=== PATIENT | male | born 1980 | race African-American/Black ===

== ENCOUNTER 2016-11-11 22:00 | Inpatient (IN) | payer OTHER ==
[~2016-11-11] VITALS: Ht 167.6 cm; Wt 76.2 kg
--- NOTE | ~2016-11-11 | PN ---
Unit #: [id number] #: [id number] Patient: RASHI GIBSON [id number] [facility] [address] [place] [address] [id number] MR#: [id number] NAME: RASHI GIBSON. ROOM: P1 Age: 35 Sex: M Admission Date: 11/12/2016 : 1980 Attending Physician: Jeronimo Pradhan M.D. Admitting Physician: Jeronimo Pradhan M.D. Primary Care Physician: Primary Care Physician Megan BARRON PROGRESS NOTES DATE 11/15/2016 DISCUSSION Rashi Gibson is a 35-year-old male, seen on 11/15/2016. The patient interviewed, chart reviewed, and obtained information from the nursing staff. The patient reports making progress and somewhat anxious and nervous but denied any thoughts of harming self or others. The patient's vital signs, 98.4, 57, 106/54. REVIEW OF SYSTEMS Complete review of systems unremarkable. MENTAL STATUS EXAMINATION General appearance: Attention span and concentration, fair. Oriented in time, place, and person. Mood and affect, labile. Speech, monotone. Thought process, concrete. The patient denied any thoughts of harming self or others. Recent and remote memory, poor. Insight and judgment, poor. DIAGNOSES 1. Mood disorder, NOS. 2. Opiate use disorder, severe. ASSESSMENT/PLAN Advised to continue with the current medication and therapeutic protocol, and if needed consider further adjustment of medication. Dictated by... Deb Galo/jocy TD: 11/16/2016 08:55 JOB #: [id number] Unit #: [id number] #: [id number] Patient: RASHI GIBSON PROGRESS NOTES Page 1 of 1 X Jeronimo Pradhan MD PROGRESS NOTE
--- NOTE | ~2016-11-11 | DS ---
Unit #: [id number] #: [id number] Patient: MADISON MILTON [id number] [facility] [address] [place] [address] [id number] MR#: [id number] NAME: MADISON MILTON. ROOM: [facility] Age: 35 Sex: M Admission Date: 11/12/2016 : 1980 Discharge Date: 11/16/2016 Attending Physician: Jeronimo Pradhan M.D. Primary Care Physician: Primary Care Physician No DISCHARGE SUMMARY REASON FOR ADMISSION Detox. DIAGNOSTIC STUDIES LABORATORY RESULTS: Remarkable for alkaline phosphatase is 124. RBC 6.52. HOSPITAL COURSE The patient was admitted to inpatient unit on 11/12/2016 and discharged on 11/16/2016. The patient was treated on the inpatient unit with chemical dependency group, expressive therapy, psychoeducation, and psychotherapy. The patient was responsive to treatment. Subsequently, the patient was discharged with a plan to follow up in outpatient program. DISCHARGE MEDICATIONS Celexa 20 mg daily for depression. DISCHARGE DIAGNOSES Psychiatric: Major depressive disorder, recurrent, severe, F33.2; opioid use disorder, severe, F11.20; cannabis abuse, moderate, F12.20. Secondary diagnosis: Deferred. Medical diagnosis: None. Stressors: Psychosocial stressors. DISCHARGE INSTRUCTIONS The patient to follow up in outpatient clinic as per social research assistant. CONDITION ON DISCHARGE The patient was pleasant and cooperative. Denied any psychotic symptom or any suicidal ideation. PROGNOSIS Guarded. DIET AND ACTIVITY As tolerated. Dictated by... Jeronimo Pradhan M.D. Unit #: [id number] #: [id number] Patient: MADISON MILTON SZC/modl TD: 11/16/2016 15:20 JOB #: [id number] DISCHARGE SUMMARY Page 1 of 1 X Jeronimo Pradhan MD X DISCHARGE SUMMARY
--- NOTE | ~2016-11-11 | PN ---
Unit #: [id number] #: [id number] Patient: RASHI GIBSON [id number] [facility] [address] [place] [address] [id number] MR#: [id number] NAME: RASHI GIBSON. ROOM: [facility] Age: 35 Sex: M Admission Date: 11/12/2016 : 1980 Attending Physician: Jeronimo Pradhan M.D. Admitting Physician: Jeronimo Pradhan M.D. Primary Care Physician: Primary Care Physician Megan BARRON PROGRESS NOTES DATE 11/13/2016 DISCUSSION Rashi Gibson is a 35-year-old male seen on 11/13/2016. The patient interviewed, chart reviewed. Obtained information from nursing staff. The patient was compliant and cooperative. Mood labile. The patient tolerating medication fairly well. The patient currently on Celexa, no side effects from medication. The patient was able to participate in group. Complete review of systems unremarkable. MENTAL STATUS EXAMINATION General appearance, the patient dressed casually. Attention span and concentration fair. Oriented to time, place and person. Mood and affect labile. Speech monotone. Thought process concrete. The patient denied any thoughts of harming self or others. Recent and remote memory poor. Insight and judgement poor. DIAGNOSES Mood disorder NOS ASSESSMENT/PLAN Advise to continue with current medication and therapeutic protocol. If needed consider further adjustment of medication. Dictated by... Deb Galo/nas TD: 11/15/2016 03:45 JOB #: [id number] Unit #: [id number] #: [id number] Patient: RASHI GIBSON ANDERSON PROGRESS NOTES Page 1 of 1 X Jeronimo Pradhan MD PROGRESS NOTE
--- NOTE | ~2016-11-11 | PN ---
Unit #: [id number] #: [id number] Patient: RASHI GIBSON [id number] [facility] [address] [place] [address] [id number] MR#: [id number] NAME: RASHI GIBSON. ROOM: P1 Age: 35 Sex: M Admission Date: 11/12/2016 : 1980 Attending Physician: Jeronimo Pradhan M.D. Admitting Physician: Jeronimo Pradhan M.D. Primary Care Physician: Primary Care Physician Megan BARRON PROGRESS NOTES DATE 11/14/2016 DISCUSSION Rashi Gibson is a 35-year-old male seen on 11/14/2016. Patient interviewed. Chart reviewed. Obtained information from nursing staff. Patient continues to be isolative, guarded, flat affect. Patient tolerating medication fairly well. Patient denied any complaint but still isolative, guarded. Patient tolerating medication fairly well. Complete review of system unremarkable. MENTAL STATUS EXAMINATION General appearance, patient dressed casually. Attention span, concentration fair. Oriented in place and person. Mood and affect sad, dysphoric, withdrawn, isolative, guarded. Denied any thoughts of harming self or others but withdrawn, isolative. Complete review of system unremarkable. MENTAL STATUS EXAMINATION General appearance, patient dressed casually. Attention span, concentration fair. Oriented in place and person. Mood and affect sad, dysphoric. Speech monotone. Thought process concrete. Patient denied any thoughts of harming self or others but withdrawn, isolative, sad, dysphoric. Insight and judgement fair to poor. DIAGNOSES 1. Major depressive disorder, recurrent, severe. 2. Opiate use disorder, severe. 3. Cannabis abuse, moderate. ASSESSMENT/PLAN Advised to continue with current medication and therapeutic protocol. If needed, consider further adjustment of medication. Dictated by... Deb Galo/paulino TD: 11/15/2016 23:04 JOB #: [id number] Unit #: [id number] #: [id number] Patient: RASHI GIBSON [facility] PROGRESS NOTES Page 1 of 1 X Jeronimo Pradhan MD PROGRESS NOTE
--- NOTE | ~2016-11-11 | PA ---
Unit #: [id number] #: [id number] Patient: MADISON GIBSON [id number] [facility] [address] [place] [address] [id number] MR#: [id number] NAME: MADISON GIBSON. ROOM: [facility] Age: 35 Sex: M Admission Date: 11/12/2016 : 1980 Date of Assessment: Attending Physician: Jeronimo Pradhan M.D. Admitting Physician: Jeronimo Pradhan M.D. Primary Care Physician: Primary Care Physician No PSYCHIATRIC ASSESSMENT INFORMANTS The patient reliability, fair informant and chart reliability, good. CHIEF COMPLAINT Depression and suicidal ideation. HISTORY OF PRESENT ILLNESS Yeny Gibson is a 35-year-old male, who presented with the above-mentioned complaint. The patient reported tried to hang himself tonight twice reported that his aunt came to room and stop him. The patient reported that he cannot do anything right. The patient reports that he has been unable to find a job. The patient reports that he has to listen to his children's mother telling him sorry. The patient reports that he snorts heroin. Also uses cannabis daily. The patient currently unemployed, has eighth grade of education, homeless, overdose in a hotel 2 to 3 weeks ago. The patient is sleeping 3 hours, poor appetite, loss of weight almost 10 pounds, suffered from gout and hypertension. The patient needing inpatient admission at this time for psychiatric stabilization. PAST PSYCHIATRIC HISTORY Remarkable for history of previous treatment in the past, details unknown at this time. FAMILY AND SOCIAL HISTORY The patient has a poor support system. No known history of any psychiatric illness in the family. No known history of any abuse or any developmental delays known at this time. No legal charges. MEDICAL HISTORY Unremarkable for any chronic medical condition. Musculoskeletal; muscle strength and tone, no atrophy or abnormal movement. Gait normal. MEDICATION HISTORY None. ALLERGIES No known drug allergies. SUBSTANCE ABUSE HISTORY Tobacco use, age of onset 14; marijuana, age of onset 13; opioid, age of onset 27. Longest period of sobriety 6 months, last period of sobriety in 2012. The patient reported legal issues, homelessness, muscle cramping, depressed mood, abdominal cramping, and diarrhea. Unit #: [id number] #: [id number] Patient: MADISON GIBSON REVIEW OF SYSTEMS HEENT: Eyes, clear. Ears, nose, mouth, and throat are clear. CARDIOVASCULAR: Unremarkable. RESPIRATORY: Unremarkable. GI: Unremarkable. : Unremarkable. SKIN: Unremarkable. LYMPH NODE: Unremarkable. NEUROLOGIC: Unremarkable. ENDOCRINE: Unremarkable. HEMATOLOGIC: Unremarkable. ALLERGIC/IMMUNOLOGIC: Unremarkable. MUSCULOSKELETAL: Muscle strength and tone, no atrophy or abnormal movement. Gait normal. MENTAL STATUS EXAMINATION CONSTITUTIONAL: Measurement of vital signs; temperature 97.8, pulse 64, respiratory rate 18, and blood pressure 92/56. Height 5 feet 6 inches, weight 168 pounds. GENERAL APPEARANCE: The patient dressed casually. The patient did not show any facial deformity. MUSCULOSKELETAL: Please see above. PSYCHIATRIC EXAMINATION Description of speech; regular rate, normal volume, normal articulation, coherent, and spontaneous. Description of thought process, goal directed. Description of association, intact. Description of abnormal psychotic thinking; the patient denied any hallucination or delusions, but having suicidal ideation. Denied any homicidal ideation. Depressed mood, substance abuse. Description of the patient's judgment, concerning everyday activity, poor. Social situation, poor. Concerning psychiatric condition, poor. Complete mental status examination; oriented in time, place, and person. Recent and remote memory, fair. Attention span and concentration, fair. Language, able to name object and repeat phrases. Fund of knowledge, aware of current event and passive vocabulary intact. Mood and affect, sad and dysphoric. Insight and judgment, fair to poor. ASSETS AND LIABILITIES The patient is articulate and able to take care of his ADL. Liability, history of depression, substance abuse, and suicidal ideation. ADMITTING DIAGNOSES Psychiatric: Major depressive disorder, recurrent, severe, F33.2. Opioid use disorder, severe, F11.20. Cannabis abuse, moderate, F12.20. Secondary diagnosis: Deferred. Medical diagnosis: None. Stressors: Psychosocial stressors. PSYCHIATRIC PLAN AND TREATMENT GOAL AND DISCHARGE PLAN 1. Advised to admit the patient on the inpatient unit. Provide safe, supportive, and structured environment. 2. Ordered labs; CBC, CMP, UA, and UDS. Unit #: [id number] #: [id number] Patient: MADISON GIBSON 3. Precaution for aggression, self-harm. 4. Celexa 20 mg daily for depression and trazodone 75 mg at bedtime p.r.n. for sleep. The patient to attend all the programming group therapy, individual therapy, chemical dependency group, detox protocol, and detox monitoring. TREATMENT GOAL To attain euthymic mood, gain insight into his problem, and learn coping skills. DISCHARGE PLAN Plan to stabilize the patient and consider followup in outpatient program. ESTIMATED LENGTH OF STAY 5 days. Dictated by... Deb Galo/rashad TD: 11/13/2016 10:53 JOB #: [id number] PSYCHIATRIC ASSESSMENT Page 1 of 1 X Jeronimo Pradhan MD X PSYCHIATRIC ASSESSMENT
--- NOTE | ~2016-11-11 | HP ---
Unit #: [id number] #: [id number] Patient: MADISON MILTON [id number] [place] [address] [id number] MR#: [id number] NAME: MADISON MILTON. ROOM: 83 Age: 35 Sex: M Admission Date: 11/12/2016 : 1980 Attending Physician: Jeronimo Pradhan M.D. Admitting Physician: Jeronimo Pradhan M.D. Primary Care Physician: Primary Care Physician No HISTORY AND PHYSICAL HISTORY OF PRESENT ILLNESS The patient is a 35-year-old male admitted to [facility] on 11/12/2016 for suicidal ideations and for detox from heroin. The patient was sedated when I came to see him. I was unable to awaken him for history, some of his information was retrieved from the chart. PAST MEDICAL HISTORY None noted. PAST SURGICAL HISTORY None noted. SOCIAL HISTORY He is unemployed and homeless. He smokes 1 pack of cigarettes daily and uses 1 gram of heroin per day. FAMILY MEDICAL HISTORY Noncontributory. ALLERGIES No known drug allergies. CURRENT MEDICATIONS The patient is not on any home medications. REVIEW OF SYSTEMS The patient was not awake for review of systems. PHYSICAL EXAMINATION GENERAL: He is in no acute distress. VITAL SIGNS: Temperature 98.0, heart rate 70, respirations 18, blood pressure 123/73. HEIGHT: 5 feet 6. WEIGHT: 168 pounds. SKIN: Warm and dry without rash or lesion. HEENT: Normocephalic. TMs not viewed. Oral and nasal passages clear. Conjunctivae clear. PERRLA. EOMs intact. NECK: Supple without lymphadenopathy or thyromegaly. HEART: Regular rate and rhythm without murmur. LUNGS: Clear. ABDOMEN: Soft, nontender. : Not done. EXTREMITIES: No evidence of cyanosis, clubbing or edema. Moves all Unit #: [id number] #: [id number] Patient: MADISON MILTON without focal deficit. NEUROLOGICAL: Grossly within normal limits. Cranial Nerves: II: Visual hobbs are intact. III, IV AND : Extraocular movements are intact. Pupils are equal, round and reactive to light. V: Facial sensation is grossly normal. VII: Facial movements and expression are normal. VIII: Auditory acuity grossly intact. IX, X: Uvula is midline. Phonation is normal. XI: Patient shrugs shoulders and turns head normally. XII: Tongue protrudes in the midline. Sensory and Motor Function: Sensory and motor sensation is grossly normal. Motor: moves all extremities well. IMPRESSION 1. Psychiatric admission. 2. Heroin abuse. RECOMMENDATIONS PSYCHIATRIC: Per psychiatrist. MEDICAL: No contraindication to participate in this facility activities. MEDICAL PROGNOSIS Good. MEDICAL CONDITION Stable. Dictated by... Wai Vera/robert TD: 11/12/2016 15:28 JOB #: [id number] HISTORY AND PHYSICAL Page 1 of 1 X CHRIS TEMPLETON APRN HISTORY AND PHYSICAL
[2016-11-13 14:12] LABS: BASOPHIL# 0.1 X10e3 (0-0.3); BASOPHIL% 0.6 % (0-2.5); EOSINOPHIL# 0.2 X10e3 (0-0.7); EOSINOPHIL% 2.2 % (0.0-7.0); HEMATOCRIT 47.6 % (38.0-50.0); HEMOGLOBIN 14.8 gm/dL (13.0-16.0); LYMPHOCYTE# 2.5 X10e3 (1.0-3.5); LYMPHOCYTE% 28.9 % (17.0-45.0); MEAN CORPUSCULAR HEMOGLOBIN 22.7 PG (28-34); MEAN CORPUSCULAR HGB CONC 31.1 g/dL (30-36); MEAN PLATELET VOLUME 9.7 FL (6.5-11.5); MONOCYTE# 0.7 X10e3 (0-1.0); MONOCYTE% 8.4 % (3.0-12.0); NEUTROPHIL# 5.3 X10e3 (1.5-7.1); NEUTROPHIL% 59.9 % (40-75); PLATELET COUNT 228 X10e3 (140-420); RED BLOOD COUNT 6.52 X10e (3.90-5.60); RED CELL DISTRIBUTION WIDTH 15.3 % (11.0-15.5); WHITE BLOOD COUNT 8.8 X10e3 (4.0-10.5)
[2016-11-13 14:14] LABS: ALBUMIN SERUM 3.9 g/dL (3.5-5.0); BILIRUBIN,TOTAL 0.5 mg/dL (0.2-2.0); BUN/CREATININE RATIO 10.71; CALCIUM SERUM 9.5 mg/dL (8.4-10.2); CREATININE SERUM 1.4 mg/dL (0.6-1.4); GLOM FILT RATE Estimated 74.9 mL/min (>60); POTASSIUM 4.6 mmol/L (3.5-5.1); PROTEIN TOTAL SERUM 7.2 g/dL (6.0-8.3)
[2016-11-13 14:16] LABS: DIFF IND NO
[2016-11-16 10:11] LABS: URINE APPEARANCE CLEAR; URINE BILIRUBIN NEG (NEG); URINE BLOOD NEG (NEG); URINE COLOR YELLOW; URINE GLUCOSE NEG (NEG); URINE KETONE NEG (NEG); URINE LEUKOCYTE ESTERASE TRACE (NEG); URINE NITRATE NEG (NEG); URINE PH 5.5 (5-8); URINE PROTEIN NEG (NEG); URINE SPECIFIC GRAVITY 1.023 (1.003-1.035); URINE UROBILINOGEN 0.2 MG/DL (NEG)
[2016-11-16 10:15] LABS: URBCS1 AUWI 0-2 /[HPF] (0-2); URINE BACTERIA AUWI NEG (NEGATIVE); URINE SQUAMOUS EPITHELIAL CELL NONE SEEN /[HPF]; UWBCS1 AUWI 0-2 (0-5)
[2016-11-16 10:51] LABS: AMPHETAMINE NEG (NEG); BARBITURATES NEG (NEG); BENZODIAZEPINES NEG (NEG); COCAINE NEG (NEG); MARIJUANA NEG (NEG); OPIATES NEG (NEG); TRICYCLIC ANTIDEPRESSANTS NEG (NEG); U METHADONE NEG (NEG)
== END 2016-11-16 11:05 | DRG 885 ==
LOC: P1E 11-12 01:50
PROVIDERS: Psychiatry & Neurology Psychiatry
PROC: HZ2ZZZZ Detoxification Services for Substance Abuse Treatment (ICD-10-PCS; principal; 2016-11-12)
DX: F33.2 Major depressive disorder, recurrent severe without psychotic features (principal); F11.20 Opioid dependence, uncomplicated; R45.851 Suicidal ideations; F12.20 Cannabis dependence, uncomplicated; F39 Unspecified mood [affective] disorder
CPT/HCPCS: 80053; 80307; 81003; 85025; 86592